=== PATIENT | female | born 1990 | race Caucasian/White ===

== ENCOUNTER 2016-10-23 19:30 | Outpatient (CLI) | payer OTHER ==
[~2016-10-23] VITALS: Ht 157.5 cm; Wt 48.1 kg
[~2016-10-23 19:30] MED LIST: FERR28TA PO; PREN-39 PO; PRO20 PO
[2016-10-23 20:30] VITALS: Ht 157.5 cm; Wt 48.1 kg
[2016-10-23 20:32] VITALS: BP 107/56; PULSE 106; RESP 20
[2016-10-23] MEDS ORDERED: LACTATED RINGER'S 1,000 ML IV ONE (23:00)
--- NOTE | 2016-10-23 23:27 | PN ---
Date/Time of Note Date/Time of Note DATE: 10/23/16 TIME: 23:23 OB Subjective Subjective Subjective 26 yo P2113 @ 20wks 4 days c/o abominal pain no VB, no LOF OB Objective Objective Objective 107/56, 106,20,98.6 Abdomen- gravid, n/t FHT- + FH [place]- irritability Abdomen: WNL Contractions on Admission: 6-10 Minutes Apart OB Assessment/Plan Other Assessment: 26 yo P2113 @ 20+ wks, w possible UTI - sono with cervical length 4.1 - u/a sent Other plan: IV hydration if u/a pos, will treat w Keflex for UTI FRANCES STEINBERG MD Oct 23, 2016 23:27
[2016-10-23 23:37] LABS: ADD UMIC NO; URINE BILIRUBIN (Dip) NEGATIVE (NEGATIVE); URINE BLOOD (Dip) NEGATIVE (NEGATIVE); URINE COLOR YELLOW (YELLOW); URINE GLUCOSE (Dip) NEGATIVE (NEGATIVE); URINE KETONES (Dip) 15 (NEGATIVE); URINE LEUKOCYTE ESTERASE (Dip) NEGATIVE (NEGATIVE); URINE NITRITE (Dip) NEGATIVE (NEGATIVE); URINE TOTAL PROTEIN (Dip) NEGATIVE (NEGATIVE); URINE UROBILINOGEN (Dip) 1.0 E.U./dL (0.1-1.0)
--- NOTE | 2016-10-23 23:43 | RADRPT ---
PROCEDURE: US OB. US OB Estimated Weight CLINICAL INDICATION: Labor TECHNIQUE: Multiple sonographic images of the pelvis were obtained. The images were reviewed on a PACS workstation. COMPARISON: No prior studies are available for comparison. FINDINGS: The cervix is closed with a length of 4.1 centimeters. There is a single viable intrauterine gestation. Cardiac activity is present with 146 beats per min sebastian. There is a vertex presentation. Measurements were made in order to determine age. The results are as follows: BPD =4.9 cm. HC =18.2 cm. AC =15.1 cm. FL =3.5 cm. Estimated gestational age of approximately 20 weeks and 5 days. The estimated date of delivery is 03/07/2017 Estimated delivery date by last menstrual period 03/08/2017. The EFW = 366 grams, 47.5% . The placenta is posterior, grade 0. There is no evidence for an abruption or placenta previa. There is a normal amount of amniotic fluid with a maximum vertical pocket =6.4 cm. IMPRESSION: Single viable intrauterine gestation of approximately 20 weeks and 5 days. The estimated date of de livery is 03/07/2017. The cervix measures 4.0 cm, without dilation or funneling. RPTAT: HBST . .Musa Fraser MD, Date Time Electronically viewed and signed by .Musa Fraser MD, on 10/23/2016 23:43 .T/
[2016-10-24] MEDS ORDERED: CEFAZOLIN 2 GM/50 ML (PMX) 50 ML IVPB ONE (01:00)
[2016-10-24] MEDS: LACTATED RINGER'S 1,000 ML IV SCH ×2 (01:15→02:57)
[2016-10-24 01:26] LABS: ADD UMIC NO; URINE BILIRUBIN (Dip) NEGATIVE (NEGATIVE); URINE BLOOD (Dip) NEGATIVE (NEGATIVE); URINE COLOR YELLOW (YELLOW); URINE GLUCOSE (Dip) NEGATIVE (NEGATIVE); URINE KETONES (Dip) NEGATIVE (NEGATIVE); URINE LEUKOCYTE ESTERASE (Dip) NEGATIVE (NEGATIVE); URINE NITRITE (Dip) NEGATIVE (NEGATIVE); URINE TOTAL PROTEIN (Dip) NEGATIVE (NEGATIVE)
[2016-10-24 01:27] LABS: URINE UROBILINOGEN (Dip) 1.0 E.U./dL (0.1-1.0)
[2016-10-24 01:42] LABS: BACTERIA,URINE FEW; SQUAMOUS EPITHELIAL CELL,UR FEW; URINE RBCS 0-2 /HPF (0)
[2016-10-24 01:43] LABS: MUCUS,URINE FEW
[2016-10-24] MEDS ORDERED: morphine 4 MG/ML VIAL IV ONE (02:02)
[2016-10-24] MEDS ORDERED: TERBUTALINE 1 ML ONE (02:54)
[2016-10-24] MEDS ORDERED: TERBUTALINE 1 MG/ML INJ SC ONE (03:00)
--- NOTE | 2016-10-24 07:53 | TRIAGE ---
OB Triage Datetime Report Generated by CPN: 10/24/2016 07:53 Datetime: 10/24/2016 06:57 Stage of : OB Triage Labor Evaluation Frequency: Irritability/Occasional Monitor Mode: External Duration (sec)2399: 20-50 Quality: Mild Resting Tone [employer]: Relaxed Comments: Pt reports positive movt. Datetime: 10/24/2016 06:00 Stage of : OB Triage Labor Evaluation Frequency: Irritability/Irregular Monitor Mode: External Duration (sec)2399: 20-70 Quality: Mild Resting Tone [employer]: Relaxed Datetime: 10/24/2016 05:02 Stage of : OB Triage Labor Evaluation Frequency: Irritability/Irregular Monitor Mode: External Duration (sec)2399: 20-90 Quality: Mild Resting Tone [employer]: Relaxed Datetime: 10/24/2016 04:00 Stage of : OB Triage Labor Evaluation Frequency: Irritability/Irregular Monitor Mode: External Duration (sec)2399: 20-60 Quality: Mild Resting Tone [employer]: Relaxed Datetime: 10/24/2016 03:00 Stage of : OB Triage Labor Evaluation Frequency: Irritability/UCs q1-2.5 Monitor Mode: External Duration (sec)2399: 20-100 Quality: Mild Resting Tone [employer]: Relaxed Datetime: 10/24/2016 02:53 Stage of : OB Triage Datetime: 10/24/2016 02:23 Monitor Mode: Doppler Comments: fhr 151 bpm Datetime: 10/24/2016 02:00 Stage of : OB Triage Labor Evaluation Frequency: Irritability/UCs q1-5 Monitor Mode: External Duration (sec)2399: 20-70 Quality: Mild Resting Tone [employer]: Relaxed Datetime: 10/24/2016 01:55 Stage of : OB Triage Datetime: 10/24/2016 01:01 Stage of : OB Triage Labor Evaluation Frequency: Irritability/UCs q1-3 Monitor Mode: External Duration (sec)2399: 20-90 Quality: Mild Resting Tone [employer]: Relaxed Datetime: 10/24/2016 00:27 Stage of : OB Triage Datetime: 10/24/2016 00:00 Stage of : OB Triage Labor Evaluation Frequency: Irritability/UCs q1-4 Monitor Mode: External Duration (sec)2399: 20-80 Quality: Mild Resting Tone [employer]: Relaxed Datetime: 10/23/2016 23:12 Stage of : OB Triage Datetime: 10/23/2016 23:00 Stage of : OB Triage Labor Evaluation Frequency: Irritability/UCs q1-4 Monitor Mode: External Duration (sec)2399: 20-80 Quality: Mild Resting Tone [employer]: Relaxed Datetime: 10/23/2016 22:50 Stage of : OB Triage Datetime: 10/23/2016 22:00 Stage of : OB Triage Labor Evaluation Frequency: Irritability Monitor Mode: External Duration (sec)2399: 20-50 Quality: Mild Resting Tone [employer]: Relaxed Datetime: 10/23/2016 21:22 Stage of : OB Triage Datetime: 10/23/2016 21:00 Stage of : OB Triage Labor Evaluation Frequency: Irritability Monitor Mode: External Duration (sec)2399: 20-40 Quality: Mild Resting Tone [employer]: Relaxed Datetime: 10/23/2016 19:59 EGA: 20.4 Datetime: 10/23/2016 19:56 Stage of : OB Triage Assessment Type: Triage Maternal Assessment Level of Consciousness: Fully Conscious DTR's/Clonus: DTRs 2+; No Clonus Headache: Denies Blurred Vision: No Respiratory Effort: Unlabored; Regular Rhythm; Equal Expansion Breath Sounds, Left: Clear and Equal Breath Sounds, Right: Clear and Equal Nausea/Vomiting: Denies RUQ Epigastric Pain: Denies Lower Extremities Edema: None Degree: None Upper Extremities Edema: None Degree: None Facial Edema: None Temperature Route: Oral Fall Risk Assessment History of Falling: (0) No Secondary Diagnosis: (0) No Ambulatory Aid: (0) Bedrest/Nurse Assist IV Therapy: (0) No Gait: (0) Normal/Bedrest/Immobile Mental Status: (0) Oriented to Own Ability Fall Score: 0 Fall Risk Score Definition: No Risk: No action required Pain Assessment Pain Scale: 4 Pain Presence: Intermittent Pain Type: Cramping Pain Location: Abdomen Pain Relief Measures: Comfort Measures Datetime: 10/23/2016 19:55 Monitor Mode: External Contraction Comments: [employer] applied Datetime: 10/23/2016 19:52 Stage of : OB Triage Heart Rate FHR Baseline Rate: 140 Monitor Mode: Doppler Comments: Audible accels to 150s Datetime: 10/23/2016 19:47 Time of Arrival: 10/23/2016 19:27 Arrived By: Wheelchair Arrived From: Home Chief Complaint: Abdominal pain _ cramping Movement: Present Contractions: Irregular Time Contractions Began: 10/23/2016 12:00 Contractions: [id number] Rupture of Membranes: Denies Vaginal Bleeding: None Vaginal Discharge: Denies Recent Sexual Intercouse: Denies Abdominal Trauma: Not Applicable Patient Complaints: Cramping Time Provider Notified: 10/23/2016 21:22 Provider Notified: Initial Plan: Doppler, monitor uc's
== END 2016-10-24 07:30 | disposition home or self-care (01) ==
LOC: OBT 19:30 → L-D 19:31 → OBT 10-24 07:30
PROVIDERS: ATTEND Obstetrics & Gynecology
DX: O26.892 Other specified pregnancy related conditions, second trimester (principal); R10.9 Unspecified abdominal pain; Z3A.20 20 weeks gestation of pregnancy
CPT/HCPCS: 36415; 76815; 76817; 81001; 81003; 96360; 96361; 96365; 96372; 96374; J0690; J2270; J3105; J7120; Z7500; G0463

== ENCOUNTER 2017-03-03 08:42 | Inpatient (IN) | payer OTHER ==
[~2017-03-03] VITALS: Ht 157.5 cm; Wt 54.3 kg
[~2017-03-03 08:42] MED LIST changes: -PRO20 PO
[2017-03-03 09:07] VITALS: BP 102/68; PULSE 95; Ht 157.5 cm; Wt 54.3 kg
[2017-03-03] MEDS ORDERED: LIDOCAINE 1% (MPF) 30 ML INJ INJ PRN (09:30)
[2017-03-03] MEDS ORDERED: METHYLERGONOVINE 0.2 MG INJ IM PRN (09:30)
[2017-03-03] MEDS ORDERED: CARBOPROST 250 MCG INJ IM PRN (09:30)
[2017-03-03] MEDS ORDERED: LACTATED RINGER'S 1,000 ML IV PRN (09:30)
[2017-03-03] MEDS ORDERED: OXYTOCIN 30 UNITS/LR 500 ML IV PRN (09:30)
[2017-03-03] MEDS ORDERED: BUTORPHANOL 2 MG INJ IV PRN ×2 (09:30)
[2017-03-03] MEDS ORDERED: MISOPROSTOL 200 MCG TAB PR PRN (09:30)
[2017-03-03] MEDS: LACTATED RINGER'S 1,000 ML IV SCH ×2 (09:39→12:47)
[2017-03-03] MEDS ORDERED: OXYTOCIN 30 UNITS/LR 500 ML IV SCH ×2 (10:00)
[2017-03-03] MEDS ORDERED: AMPICILLIN 2 GM/NS (PMX) 100 ML IVPB ONE (10:30)
[2017-03-03 10:38] LABS: BASOPHILS % 0.4 % (0.0-2.0); EOSINOPHILS % 0.3 % (0.0-7.0); HEMATOCRIT 30.2 % (37.0-47.0); HEMOGLOBIN 10.4 g/dl (12.0-16.0); LYMPHOCYTES # 1.5 10^3/ul (0.8-2.9); LYMPHOCYTES % 18.4 % (15.0-51.0); MEAN CORPUSCULAR HEMOGLOBIN 28.9 pg (29.0-33.0); MEAN CORPUSCULAR HGB CONC 34.4 g/dl (32.0-37.0); MEAN CORPUSCULAR VOLUME 83.9 fl (82.0-101.0); MEAN PLATELET VOLUME 11.8 fl (7.4-10.4); MONOCYTE # 0.4 10^3/ul (0.3-0.9); MONOCYTES % 4.6 % (0.0-11.0); NEUTROPHILS % 75.9 % (39.0-77.0); PLATELET COUNT 176 10^3/UL (140-415); RED CELL DISTRIBUTION WIDTH 12.7 % (11.5-14.5)
[2017-03-03 11:03] LABS: PROTIME 13.2 Sec (12.2-14.2)
[2017-03-03 11:04] LABS: PARTIAL THROMBOPLASTIN TIME 28.1 Sec (25.0-35.0)
[2017-03-03] MEDS ORDERED: FENTAnyl 2MCG/ML-ROPIV 0.2% 100 ML ONE (12:08)
[2017-03-03] MEDS ORDERED: FENTAnyl 2MCG/ML-ROPIV 0.2% 100 ML BAG EPI SCH (12:30)
[2017-03-03] MEDS ORDERED: NALOXONE (0.4 MG/ML) INJ IV PRN (12:30)
[2017-03-03] MEDS ORDERED: DIPHENHYDRAMINE 50 MG INJ IV PRN (12:30)
[2017-03-03] MEDS ORDERED: ONDANSETRON 4 MG INJ IV PRN ×2 (12:30→19:00)
[2017-03-03] MEDS ORDERED: AMPICILLIN 1 GM/NS (PMX) 50 ML IVPB SCH (13:00)
--- NOTE | 2017-03-03 17:58 | LDN ---
Date/Time of Note Date/Time of Note DATE: 03/03/17 TIME: 17:55 Delivery Summary Normal spontaneous vaginal delivery baby boy from OA position shoulders delivered without any difficulty rest of the baby's body followed cord clamped after stopped pulsation placenta spontaneous exposure inspected complete blood loss 200 cc peritoneal vaginal rate assessment no laceration Weeks of Gestation 39 weeks 2 days Meconium: none Episiotomy: No Anesthesia type: Epidural Estimated blood loss: 200 Sponge & Needle done & correct: Yes All needle counts correct: Yes Any foreign bodies felt in the: No Problems: Delivery Information Sex Infant Sex: male Apgars 1 Minute: 8 5 Minute: 9 Suctioning Nose & mouth suctioned at derrek: Yes Delee suction performed: No Umbilical Cord Umbilical cord with: 3 Vessels Cord presentations: no nuchal cord Cord Blood was obtained: Yes MICHAEL ZIMMERMAN MD Mar 03, 2017 17:58
[2017-03-03 18:48] VITALS: BP 106/62; PULSE 53; RESP 20
[2017-03-03] MEDS: OXYTOCIN 30 UNITS/LR 500 ML IV SCH (18:52)
--- NOTE | 2017-03-03 18:52 | HP ---
Date/Time of Note Date/Time of Note DATE: 03/03/17 TIME: 18:48 OB - History Hx of Present Free Text/Dictation 26 years old female T2 PT 1 SAB L3 Admitted to [facility] in active labor pelvic examination on admission cervix 6 cm dilated 100% effaced vertex at -1 station category 1 heart rate patient transferred to L&D expecting management for delivery Chief Complaint: Labor contraction Estimated Due Date: Mar 08, 2017 : 5 Para: 3 Spontaneous : 1 Care: Good Care Ultrasounds: Normal mid trimester US Obstetrical Complications: None Medical Complications: None Past Family/Social History * Past Medical, Surgical, Family and Obstetric Histories reviewed from chart. Rubella: immune GBS Status: Negative HBsAG: Negative OB Admission Exam Vital Signs Vital Signs Vital Signs Date Time Temp Pulse Resp B/P Pulse Ox O2 Delivery O2 Flow Rate FiO2 03/03/17 09:07 98.1 95 102/68 Physical Exam HEENT: WNL Heart: Rhythm Normal Lungs: Clear, Equal Abdomen: WNL Extremities: Normal Reflexes: Normal Cervical Dilatation: 6cm Effacement: 100% Station: -1 Membranes: Intact Heart Rate: 130's Accelerations: Accelerations Present Varibility: Moderate Contractions on Admission: < 5 Minutes Apart Intensity: Firm Last 72 hours Lab Results CBC & BMP 03/03/17 09:37 MICHAEL ZIMMERMAN MD Mar 03, 2017 18:52
[2017-03-03] MEDS ORDERED: HYDROCODONE/APAP (5/325) TAB PO PRN ×2 (19:00)
[2017-03-03] MEDS ORDERED: ACETAMINOPHEN 325 MG TAB PO PRN (19:00)
[2017-03-03] MEDS ORDERED: DIBUCAINE 1% 30 GM OINT PR PRN (19:00)
[2017-03-03] MEDS ORDERED: LANOLIN 7 GM TUBE TOP PRN (19:00)
[2017-03-03] MEDS ORDERED: OXYCODONE/ASPIRIN (4.88/325) TAB PO PRN ×2 (19:00)
[2017-03-03] MEDS ORDERED: WITCH HAZEL/GLYCERIN PAD PR PRN (19:00)
[2017-03-03] MEDS ORDERED: BENZOCAINE 20% 56 ML SPRAY TOP PRN (19:00)
[2017-03-03] MEDS: IBUPROFEN 600 MG TAB PO SCH (20:01)
[2017-03-03 20:15] VITALS: BP 102/56; PULSE 59; RESP 18
[2017-03-04] MEDS: OXYTOCIN 30 UNITS/LR 500 ML IV SCH (01:03)
[2017-03-04] MEDS: SENNA/DOCUSATE NA (8.6MG/50MG) TAB PO SCH ×3 (01:03→21:00)
[2017-03-04] MEDS: IBUPROFEN 600 MG TAB PO SCH ×4 (01:03→17:44)
[2017-03-04 05:00] VITALS: BP 105/65; PULSE 54; RESP 18
[2017-03-04 09:10] VITALS: BP 106/56; PULSE 61; RESP 18
[2017-03-04 10:28] LABS: BASOPHILS % 0.3 % (0.0-2.0); EOSINOPHILS % 0.1 % (0.0-7.0); HEMATOCRIT 30.3 % (37.0-47.0); HEMOGLOBIN 9.9 g/dl (12.0-16.0); LYMPHOCYTES # 1.4 10^3/ul (0.8-2.9); LYMPHOCYTES % 18.3 % (15.0-51.0); MEAN CORPUSCULAR HEMOGLOBIN 27.6 pg (29.0-33.0); MEAN CORPUSCULAR HGB CONC 32.7 g/dl (32.0-37.0); MEAN CORPUSCULAR VOLUME 84.4 fl (82.0-101.0); MEAN PLATELET VOLUME 11.5 fl (7.4-10.4); MONOCYTE # 0.3 10^3/ul (0.3-0.9); MONOCYTES % 4.2 % (0.0-11.0); NEUTROPHILS % 76.8 % (39.0-77.0); PLATELET COUNT 160 10^3/UL (140-415); RED BLOOD COUNT 3.59 10^6/ul (4.20-5.40); RED CELL DISTRIBUTION WIDTH 12.6 % (11.5-14.5); WHITE BLOOD COUNT 7.7 10^3/ul (4.8-10.8)
[2017-03-04 11:57] VITALS: BP 97/59; PULSE 60; RESP 18
[2017-03-04 16:20] VITALS: BP 99/58; PULSE 73; RESP 18
--- NOTE | 2017-03-04 18:14 | PN ---
Date/Time of Note Date/Time of Note DATE: 03/04/17 TIME: 18:13 OB Subjective Subjective Subjective day 1 Afebrile Vital signs are stable Abdomen soft Uterus firm Lochia normal Extremities normal Ambulation encouraged Laboratory Tests Test 03/04/17 09:43 White Blood Count 7.710^3/ul Red Blood Count 3.5910^6/ul Hemoglobin 9.9g/dl Hematocrit 30.3% Mean Corpuscular Volume 84.4fl Mean Corpuscular Hemoglobin 27.6pg Mean Corpuscular Hemoglobin Concent 32.7g/dl Red Cell Distribution Width 12.6% Platelet Count 36661^3/UL Mean Platelet Volume 11.5fl Neutrophils % 76.8% Lymphocytes % 18.3% Monocytes % 4.2% Eosinophils % 0.1% Basophils % 0.3% Nucleated Red Blood Cells % 0.0/100WBC Neutrophils # (Manual) 5.910^3/ul Lymphocytes # 1.410^3/ul Monocytes # 0.310^3/ul Eosinophils # 0.010^3/ul Basophils # 0.010^3/ul Nucleated Red Blood Cells # 0.010^3/ul Current Medications Medications (Trade) Dose Ordered Sig/Mary Jane Route PRN Reason Start Time Stop Time Status Last Admin Dose Admin Lactated Ringer's (Lr) 1,000 ml @ 125 mls/hr Q8H IV 03/03/17 09:12 03/03/17 18:57 DC 03/03/17 12:47 Butorphanol Tartrate (Stadol) 1 mg Q2H PRN IV PAIN 03/03/17 09:30 03/03/17 18:57 DC Butorphanol Tartrate (Stadol) 2 mg Q2H PRN IV PAIN 03/03/17 09:30 03/03/17 18:57 DC Lidocaine 30 ml 30 ml ONCE PRN INJ EPISIOTOMY/TEARING 03/03/17 09:30 03/03/17 18:57 DC Lactated Ringer's 1,000 ml @ 2,000 mls/hr Q30M PRN IV PRE-EPIDURAL BOLUS 03/03/17 09:30 03/03/17 18:57 DC 03/03/17 11:56 Oxytocin/Lactated Ringer's 500 ml @ 0 mls/hr ONCE PRN IV For Hemorrhage Management 03/03/17 09:30 8/15/17 18:54 DC Methylergonovine Maleate (Methergine) 0.2 mg ONCE PRN IM VAGINAL BLEEDING 03/03/17 09:30 03/03/17 18:54 DC Carboprost Tromethamine (Hemabate) 250 mcg ONCE PRN IM VAGINAL BLEEDING 03/03/17 09:30 03/03/17 18:54 DC Misoprostol 1000 mcg 1,000 mcg ONCE PRN [place] VAGINAL BLEEDING 03/03/17 09:30 03/03/17 18:54 DC Oxytocin/Lactated Ringer's 500 ml @ 125 mls/hr ONCE -MAY REPEAT X1 IV 03/03/17 10:00 03/03/17 18:54 DC 03/03/17 15:45 Oxytocin/Lactated Ringer's 500 ml @ 125 mls/hr ONCE IV 03/03/17 10:00 03/03/17 18:55 DC 03/03/17 16:00 Ampicillin 100 ml @ 100 mls/hr ONCE ONCE IVPB 03/03/17 10:30 03/03/17 11:29 DC 03/03/17 10:24 Ampicillin (Ampicillin 1 Gm/ NS (Pmx)) 50 ml @ 100 mls/hr Q4 IVPB 03/03/17 13:00 03/03/17 18:55 DC 03/03/17 12:52 Naloxone HCl (Narcan) 0.1 mg Q2M PRN IV FOR RESP RATE 8 OR LESS 03/03/17 12:30 03/03/17 18:55 DC Diphenhydramine HCl (Benadryl) 25 mg Q6H PRN IV ITCHING 03/03/17 12:30 03/03/17 18:55 DC Ondansetron HCl (Zofran Inj) 4 mg Q6H PRN IV NAUSEA AND/OR VOMITING 03/03/17 12:30 03/03/17 18:55 DC Fentanyl/ Ropivacaine 100 ml 100 ml EPIDURAL INFUSION EPI 03/03/17 12:30 03/03/17 18:55 DC Fentanyl/ Ropivacaine 100 ml @ ud STK-MED ONCE .ROUTE 03/03/17 12:08 03/03/17 12:09 DC Oxytocin/Lactated Ringer's 500 ml @ 125 mls/hr Q4H IV 03/03/17 18:52 03/04/17 02:51 DC 03/04/17 01:03 Ibuprofen (Motrin) 600 mg Q6 PO 03/03/17 19:00 03/04/17 17:44 Acetaminophen (Tylenol Tab) 650 mg Q4H PRN PO PAIN LEVEL 1-5 03/03/17 19:00 Acetaminophen/ Hydrocodone Bitart ([place] (5/325)) 1 tab Q4H PRN PO PAIN LEVEL 1-5 03/03/17 19:00 Acetaminophen/ Hydrocodone Bitart ([place] (5/325)) 2 tab Q4H PRN PO PAIN LEVEL 6-10 03/03/17 19:00 Oxycodone/Aspirin (Percodan) 1 tab Q3H PRN PO PAIN LEVEL 1-5 03/03/17 19:00 Oxycodone/Aspirin (Percodan) 2 tab Q3H PRN PO PAIN LEVEL 6-10 03/03/17 19:00 Ondansetron HCl (Zofran Inj) 4 mg Q6H PRN IV NAUSEA AND/OR VOMITING 03/03/17 19:00 Senna/Docusate Sodium (Senokot-S) 1 tab BID PO 03/03/17 21:00 03/04/17 09:10 Witch Yue/ Glycerin (Tucks Pads) 1 pad BEDSIDE MEDICATION PRN [place] HEMORRHOID/EPISIOTMY PAIN 03/03/17 19:00 03/03/17 20:01 Benzocaine (Dermoplast [place]) 1 spray BEDSIDE MEDICATION PRN TOP HEMORRHOID/EPISIOTMY PAIN 03/03/17 19:00 03/03/17 20:01 Dibucaine (Nupercainal) 1 applic BEDSIDE MEDICATION PRN [place] HEMORRHOID/EPISIOTMY PAIN 03/03/17 19:00 Lanolin (Tnm-F-Apydmm) 1 applic BEDSIDE MEDICATION PRN TOP BEDSIDE FOR RISSA TO NIPPLES 03/03/17 19:00 03/03/17 20:01 Measles/Mumps/ Rubella Vaccine Live (Mmr Ii Vaccine) 0.5 ml ONCE ONCE SC* 03/05/17 09:00 03/05/17 09:01 MICHAEL ZIMMERMAN MD Mar 04, 2017 18:14
[2017-03-04 20:45] VITALS: BP 91/54; PULSE 67; RESP 19
[2017-03-05] MEDS: IBUPROFEN 600 MG TAB PO SCH ×3 (00:35→11:58)
[2017-03-05 05:29] VITALS: BP 95/48; PULSE 57; RESP 18
[2017-03-05 08:45] VITALS: BP 97/58; PULSE 62; RESP 16
[2017-03-05] MEDS ORDERED: MEASLES,MUMPS,RUBELLA VACCINE INJ SC* ONE (09:00)
[2017-03-05] MEDS: SENNA/DOCUSATE NA (8.6MG/50MG) TAB PO SCH (09:39)
[2017-03-05] MEDS ORDERED: DIPHTH/TET/ACEL PERTUSS (ADULT) 0.5 ML VIAL IM* ONE (10:00)
--- NOTE | 2017-03-05 10:21 | DS ---
Date/Time of Note Date/Time of Note DATE: 03/05/17 TIME: 10:18 Obstetrical Discharge Record Final Diagnosis Final Diagnosis: Term delivered Vaginal Delivery Obstetrical Delivery: Spontaneous Complications Gestational Age at Rupture Current Medications Medications (Trade) Dose Ordered Sig/[place] Route PRN Reason Start Time Stop Time Status Last Admin Dose Admin Lactated Ringer's (Lr) 1,000 ml @ 125 mls/hr Q8H IV 03/03/17 09:12 03/03/17 18:57 DC 03/03/17 12:47 Butorphanol Tartrate (Stadol) 1 mg Q2H PRN IV PAIN 03/03/17 09:30 03/03/17 18:57 DC Butorphanol Tartrate (Stadol) 2 mg Q2H PRN IV PAIN 03/03/17 09:30 03/03/17 18:57 DC Lidocaine 30 ml 30 ml ONCE PRN INJ EPISIOTOMY/TEARING 03/03/17 09:30 03/03/17 18:57 DC Lactated Ringer's 1,000 ml @ 2,000 mls/hr Q30M PRN IV PRE-EPIDURAL BOLUS 03/03/17 09:30 03/03/17 18:57 DC 03/03/17 11:56 Oxytocin/Lactated Ringer's 500 ml @ 0 mls/hr ONCE PRN IV For Hemorrhage Management 03/03/17 09:30 03/03/17 18:54 DC Methylergonovine Maleate (Methergine) 0.2 mg ONCE PRN IM VAGINAL BLEEDING 03/03/17 09:30 03/03/17 18:54 DC Carboprost Tromethamine (Hemabate) 250 mcg ONCE PRN IM VAGINAL BLEEDING 03/03/17 09:30 03/03/17 18:54 DC Misoprostol 1000 mcg 1,000 mcg ONCE PRN [place] VAGINAL BLEEDING 03/03/17 09:30 03/03/17 18:54 DC Oxytocin/Lactated Ringer's 500 ml @ 125 mls/hr ONCE -MAY REPEAT X1 IV 03/03/17 10:00 03/03/17 18:54 DC 03/03/17 15:45 Oxytocin/Lactated Ringer's 500 ml @ 125 mls/hr ONCE IV 03/03/17 10:00 03/03/17 18:55 DC 03/03/17 16:00 Ampicillin 100 ml @ 100 mls/hr ONCE ONCE IVPB 03/03/17 10:30 03/03/17 11:29 DC 03/03/17 10:24 Ampicillin (Ampicillin 1 Gm/ NS (Pmx)) 50 ml @ 100 mls/hr Q4 IVPB 03/03/17 13:00 03/03/17 18:55 DC 03/03/17 12:52 Naloxone HCl (Narcan) 0.1 mg Q2M PRN IV FOR RESP RATE 8 OR LESS 03/03/17 12:30 03/03/17 18:55 DC Diphenhydramine HCl (Benadryl) 25 mg Q6H PRN IV ITCHING 03/03/17 12:30 03/03/17 18:55 DC Ondansetron HCl (Zofran Inj) 4 mg Q6H PRN IV NAUSEA AND/OR VOMITING 03/03/17 12:30 03/03/17 18:55 DC Fentanyl/ Ropivacaine 100 ml 100 ml EPIDURAL INFUSION EPI 03/03/17 12:30 03/03/17 18:55 DC Fentanyl/ Ropivacaine 100 ml @ ud STK-MED ONCE .ROUTE 03/03/17 12:08 03/03/17 12:09 DC Oxytocin/Lactated Ringer's 500 ml @ 125 mls/hr Q4H IV 03/03/17 18:52 03/04/17 02:51 DC 03/04/17 01:03 Ibuprofen (Motrin) 600 mg Q6 PO 03/03/17 19:00 03/05/17 05:57 Acetaminophen (Tylenol Tab) 650 mg Q4H PRN PO PAIN LEVEL 1-5 03/03/17 19:00 Acetaminophen/ Hydrocodone Bitart ([place] (5/325)) 1 tab Q4H PRN PO PAIN LEVEL 1-5 03/03/17 19:00 Acetaminophen/ Hydrocodone Bitart ([place] (5/325)) 2 tab Q4H PRN PO PAIN LEVEL 6-10 03/03/17 19:00 Oxycodone/Aspirin (Percodan) 1 tab Q3H PRN PO PAIN LEVEL 1-5 03/03/17 19:00 Oxycodone/Aspirin (Percodan) 2 tab Q3H PRN PO PAIN LEVEL 6-10 03/03/17 19:00 Ondansetron HCl (Zofran Inj) 4 mg Q6H PRN IV NAUSEA AND/OR VOMITING 03/03/17 19:00 Senna/Docusate Sodium (Senokot-S) 1 tab BID PO 03/03/17 21:00 03/05/17 09:39 Witch Yue/ Glycerin (Tucks Pads) 1 pad BEDSIDE MEDICATION PRN [place] HEMORRHOID/EPISIOTMY PAIN 03/03/17 19:00 03/03/17 20:01 Benzocaine (Dermoplast [place]) 1 spray BEDSIDE MEDICATION PRN TOP HEMORRHOID/EPISIOTMY PAIN 03/03/17 19:00 03/03/17 20:01 Dibucaine (Nupercainal) 1 applic BEDSIDE MEDICATION PRN [place] HEMORRHOID/EPISIOTMY PAIN 03/03/17 19:00 Lanolin (Lbl-B-Lvloyd) 1 applic BEDSIDE MEDICATION PRN TOP BEDSIDE FOR RISSA TO NIPPLES 03/03/17 19:00 03/03/17 20:01 Measles/Mumps/ Rubella Vaccine Live (Mmr Ii Vaccine) 0.5 ml ONCE ONCE SC* 03/05/17 09:00 03/05/17 09:46 DC Diphtheria/ Tetanus/Acell Pertussis (Adacel) 0.5 ml ONCE ONCE IM* 03/05/17 10:00 03/05/17 10:01 DC Condition on Discharge Physical Assessment Last Vitals: Doing Well Afebrile Ambulatory Chest Clear Breasts are soft , Nipples are intact Abdomen is soft Fundus is firm Moderate amount of lochia, No evidence of infection No calf tenderness No ankle edema New born is doing well, Breast feeding Voiding: Yes Bowel Movement: Yes Breast: Soft, non-tender Fundus: Firm Calf Tenderness: Yes Patient Condition: Good THANH MONTES MD Mar 05, 2017 10:21
== END 2017-03-05 16:12 | disposition home or self-care (01) | DRG 775 ==
LOC: OBT 08:42 → L-D 08:44 → OBT 09:18 → L-D 09:18 → PP1 18:31
PROVIDERS: ADMIT Obstetrics & Gynecology; ATTEND Obstetrics & Gynecology
PROC: 10E0XZZ Delivery of Products of Conception, External Approach (ICD-10-PCS; principal; 2017-03-03)
PROC: 3E033VJ Introduction of Other Hormone into Peripheral Vein, Percutaneous Approach (ICD-10-PCS; 2017-03-03)
DX: O80 Encounter for full-term uncomplicated delivery (principal); Z37.0 Single live birth; Z3A.39 39 weeks gestation of pregnancy
CPT/HCPCS: 62319; 85025; 85610; 85730; 86592; 86900; 86901; 87340; 90715; G0463; J0290; J2590; J3010; J7120

== ENCOUNTER 2018-04-15 | Inpatient (IN) | END 2018-04-17 15:53 | disposition home or self-care (01) | DRG 775 ==